=== PATIENT | female | born 1975 | race African-American/Black ===

== ENCOUNTER 2017-02-13 23:54 | Emergency (ER) | payer OTHER ==
[~2017-02-13] VITALS: Ht 165.1 cm; Wt 100.0 kg
[~2017-02-13 23:54] MED LIST: MACR100C2 PO; ZOFR8TAB4 SL
[2017-02-13 23:56] VITALS: BP 150/93; PULSE 78; RESP 18; TEMP 98.9; O2SAT 95
[2017-02-14] MEDS ORDERED: FLUT1SPR5 EACH NARE (01:48)
[2017-02-14] MEDS ORDERED: LEVA500T PO (01:48)
--- NOTE | 2017-02-14 01:52 | PD ---
HPI Chief Complaint: ENT Complaint Time Seen by Provider: 01:42 Travel History International Travel<30 days: No Contact w/Intl Traveler<30days: No Traveled to known affect area: No History of Present Illness HPI This is a 41-year-old female who presents for evaluation of left ear pain, sense of aural fullness/pressure. The patient reports that 8 days ago she developed nasal congestion and sinus pressure and sore throat. 7 days ago she developed left ear pain and pressure. Pain is an aching pain which is constant. No alleviating factors. She is having no difficulties in her right ear. She denies any fevers or chills. No recent travel, no recent swimming. Denies cough, shortness of breath. She has no other complaints at this time. PFSH Past Medical History Heart Rhythm Problems: No Cancer: Yes ([place] 1994) Cardiac Catheterization: No Cardiovascular Problems: No Chest Pain: Yes Congestive Heart Failure: No Diabetes: No Diminished Hearing: No Headaches: Yes Hypertension: No ?: Not LMP: IRREG : 2 Miscarriage: 2 Past Surgical History Coronary Artery Bypass Graft: No Gynecologic Surgery: Yes (RIGHT OVARY REMOVED) Hysterectomy: Yes Social History Alcohol Use: No Tobacco Use: No (COUPLE OF CIGS/DAY) Substance Use: No Allergies-Medications (Allergen,Severity, Reaction): Coded Allergies: Amoxicillin (Verified Allergy, Intermediate, Rash, 02/13/17) Penicillin (Verified Allergy, Intermediate, Rash, 02/13/17) Reported Meds & Prescriptions Reported Meds & Active Scripts Active Zofran Odt (Ondansetron Odt) 8 Mg Tab 8 Mg SL Q8H PRN Macrobid (Nitrofurantoin Monoh/Nitrofur Macro) 100 Mg Cap 100 Mg PO BID Review of Systems General / Constitutional: No: Fever, Chills HENT: Positive: Sore Throat, Congestion, Earache Respiratory: No: Cough, Shortness of Breath Physical Exam Narrative GENERAL: This is a well-developed well-nourished female who is in no acute distress. Her vital signs have been reviewed. SKIN: Warm and dry. HEAD: Atraumatic. Normocephalic. EYES: Pupils equal and round. No scleral icterus. No injection or drainage. ENT: No nasal bleeding or discharge. Mucous membranes pink and moist. There is slight oropharyngeal erythema. The left tympanic membrane is bulging and erythematous without perforation. Right tympanic membrane by contrast appears normal without erythema or fluid level. There is no cerumen or other debris and next or no ear canals. There is no mastoid tenderness. NECK: Trachea midline. No JVD. Tender left anterior cervical lymphadenopathy. CARDIOVASCULAR: Regular rate and rhythm. No murmur appreciated. RESPIRATORY: No accessory muscle use. Clear to auscultation. Breath sounds equal bilaterally. Data Data Last Documented VS Vital Signs Date Time Temp Pulse Resp B/P Pulse Ox O2 Delivery O2 Flow Rate FiO2 02/13/17 23:56 98.9 78 18 150/93 95 Room Air Orders Levofloxacin (Levaquin) (02/14/17 02:00) Pseudoephedrine (Sudafed) (02/14/17 02:00) Ibuprofen (Motrin) (02/14/17 02:00) [facility] Medical Decision Making Medical Screen Exam Complete: Yes Emergency Medical Condition: Yes Medical Record Reviewed: Yes Differential Diagnosis Left otitis media, eustachian tube dysfunction, referred dental pain, mastoiditis, otitis externa, malignant otitis externa, sinusitis Narrative Course This is a 41-year-old female who developed sore throat and congestion and sinus pressure 8 days ago. She presents with left ear pain, pressure and aural fullness for one week. On examination she has obvious left otitis media and left anterior cervical lymphadenopathy. The patient reports true allergy to penicillin based products and therefore she will be placed on Levaquin, first dose given tonight. She will also be given Sudafed and ibuprofen tonight. She is being discharged with a prescription for Flonase as well. Diagnosis Primary Impression: Left otitis media Qualified Code: H66.002 - Acute suppurative otitis media of left ear without spontaneous rupture of tympanic membrane, recurrence not specified Additional Instructions: Take antibiotic as prescribed. Use the Flonase as prescribed. Use over-the- counter nasal decongestant as needed. Take Tylenol or Motrin for discomfort. Return for any emergent medical conditions. Med/Other Pt SpecificInfo: Prescription(s) given Scripts Fluticasone Nasal [place] (Flonase Nasal [place])50 Mcg/Act [id number] Mcg EACH NARE BID 10 Days Ref 0 Prov:Claus Barrera MD 02/14/17 Levofloxacin (Levaquin)500 Mg [id number] Mg PO DAILY 9 Days Ref 0 Prov:Claus Barrera MD 02/14/17 Disposition: 01 DISCHARGE HOME Condition: Stable Alcides Brown Feb 14, 2017 01:52
[2017-02-14] MEDS ORDERED: LEVOFLOXACIN 500 MG TAB PO ONE (02:00)
[2017-02-14] MEDS ORDERED: IBUPROFEN 800 MG TAB PO ONE (02:00)
[2017-02-14] MEDS ORDERED: PSEUDOEPHEDRINE HCL 30 MG TAB PO ONE (02:00)
== END 2017-02-14 02:39 | disposition home or self-care (01) ==
LOC: NEPK 23:54
DX: H66.92 Otitis media, unspecified, left ear (principal)
CPT/HCPCS: 99283